=== PATIENT | male | born 1945 | race Caucasian/White ===

== ENCOUNTER 2019-05-08 12:41 | Observation (INO) | payer MEDICARE ==
[2019-05-08] MEDS ORDERED: NS 0.9% 1000 ML** 1,000 ML IV ONE (13:35)
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
[2019-05-08 14:09] LABS: ABS Lymphocytes 0.8 10^3/ul (1.0-4.8); ABS Monocytes 0.6 10^3/ul (0-0.8); ABS Neutrophils 8.7 10^3/ul (1.5-7.7); Eosinophil % 0.2 %; Hematocrit 40 % (42-52); Hemoglobin 14.4 g/dL (14.0-18.0); Lymphocyte % 8.2 %; Mean Corpuscular HGB Conc 36 g/dL (31-36); Mean Corpuscular Hemoglobin 33 pg (27-31); Mean Corpuscular Volume 92 fL (80-94); Mean Platelet Volume 8.2 fL (7.4-10.4); Platelet Count 184 10^3/uL (150-450); Red Cell Distribution Width 13 % (10-15); White Blood Count 10.1 10^3/uL (3.5-10.8)
[2019-05-08 14:16] LABS: INR 1.12 (0.82-1.09)
[2019-05-08 14:20] LABS: Albumin 3.6 g/dL (3.2-5.2); Albumin/Globulin Ratio 1.7 (1-3); BUN/Creatinine Ratio 16.8 (8-20); Calcium 8.7 mg/dL (8.6-10.3); EGFR African American 72.9 (>60); EGFR Non-African American 60.3 (>60); Globulin 2.1 g/dL (2-4); Potassium 4.3 mmol/L (3.5-5.0); Total Bilirubin 0.9 mg/dL (0.2-1.0); Total Protein 5.7 g/dL (6.4-8.9)
[2019-05-08 14:41] LABS: Activated Partial Thrombo Time 24.6 seconds (26.0-38.0)
[2019-05-08] MEDS ORDERED: Ondansetron INJ* 2 MG/ML VIAL IV PRN (16:39)
[2019-05-08] MEDS ORDERED: Acetaminophen TAB* 325 MG PO PRN (16:39)
[2019-05-08 17:16] LABS: TSH (Thyroid Stimulating Horm) 0.82 mcIU/mL (0.34-5.60)
[2019-05-08] MEDS: Enoxaparin(*) 40 MG/0.4 ML SYR SUBCUT SCH (19:21)
[2019-05-08] MEDS: NS 0.9% 1000 ML** 1,000 ML IV SCH ×2 (19:39→19:58)
[2019-05-08] MEDS: Artificial Tears* 15 ML BTL BOTH EYES SCH (19:57)
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
[2019-05-09 06:24] LABS: BUN/Creatinine Ratio 15.9 (8-20); Calcium 8.8 mg/dL (8.6-10.3); EGFR African American 82.4 (>60); EGFR Non-African American 68.1 (>60)
[2019-05-09] MEDS: Artificial Tears* 15 ML BTL BOTH EYES SCH (07:57)
[2019-05-09] MEDS ORDERED: Cholecalciferol TAB* 1000 UNITS PO SCH (09:00)
[2019-05-09] MEDS ORDERED: Losartan TAB* 25 MG PO SCH (09:00)
--- NOTE | 2019-05-09 12:46 | ECHO ---
*[facility]* [place] [address] Fax #: [phone] Transthoracic Echocardiogram Patient: John Mabry : 1945 Study Date: 05/09/2019 Age: 73 Gender: M HR: 36 bpm Height: 71 in /180.3 cm BSA: 2.06 m^2 Weight: 189.6 lb /86.2 kg BMI: 26.5 kg/m^2 *Brim Buster: * Su Sethi [facility] *Referring Physician: * Eri Moon *Reading Physician: * Arvin Ervin MD Indications: Syncope. History: Syncope. Risk factors: Hypertension. Conclusions Summary: 1. Left ventricle: Systolic function is at the lower limits of normal. The estimated ejection fraction is 50-55%. Wall motion is normal; there are no regional wall motion abnormalities. 2. Right ventricle: Systolic function is low normal. 3. Left atrium: The atrium is severely dilated. 4. Mitral valve: There is mild regurgitation. 5. Aortic valve: There is no evidence of stenosis. There is trace to mild regurgitation. 6. Ascending aorta: The ascending aorta is mild to moderately dilated. 7. Pulmonary arteries: Systolic pressure is within the normal range. 8. Study data: No prior study is available for comparison. Study data: Transthoracic echocardiogram. Procedure: Transthoracic echocardiography was performed. Image quality was fair. Complete 2D, spectral Doppler, and color flow Doppler. Location: Echo laboratory. Patient status: Inpatient. Patient room number: 441-2. No prior study is available for comparison. Rhythm: Heart block. 2nd Degree Mobitz 1. Findings Left ventricle: The cavity size is normal. Wall thickness is normal. Systolic function is at the lower limits of normal. The estimated ejection fraction is 50-55%. Wall motion is normal; there are no regional wall motion abnormalities. There is no consistent Doppler evidence of clinically significant diastolic dysfunction. Right ventricle: The cavity size is mildly dilated. The moderator band is in a normal position. Systolic function is low normal. Left atrium: The atrium is severely dilated. Right atrium: The atrium is mildly dilated. Mitral valve: The leaflets are mildly thickened. There is no evidence of stenosis. There is mild regurgitation. Aortic valve: The valve is trileaflet. The leaflets are mildly thickened. There is no evidence of stenosis. There is trace to mild regurgitation. Tricuspid valve: The leaflets are normal thickness. There is no evidence of stenosis. There is mild regurgitation. Pulmonic valve: The leaflets are normal thickness. There is no evidence of stenosis. There is trivial regurgitation. Aorta: Aortic root: The aortic root is mildly dilated. Ascending aorta: The ascending aorta is mild to moderately dilated. Aortic arch: The aortic arch is appears normal. Pericardium: There is no significant pericardial effusion. Pulmonary arteries: The main pulmonary artery is normal-sized. Systolic pressure is within the normal range. Systemic veins: Inferior vena cava: The vessel is normal in size. The respirophasic diameter changes are in the normal range (>= 50%). Measurements Left ventricle Value Ref Aortic valve Value Ref ROZ, LAX 5.5 cm 4.2 - 5.8 Micah diam, ED 2.3 cm ----- ESD, LAX 3.7 cm 2.5 - 4.0 Peak v, S 1.17 m/sec ----- FS, LAX 33 % 25 - 43 VTI, S 24.8 cm ----- PW, ED, LAX 0.9 cm 0.6 - 1.0 Mean grad, S 2.0 mm Hg ----- FS 33 % 25 - 43 Peak grad, S 5.0 mm Hg ----- PW, ED 0.9 cm 0.6 - 1.0 LVOT/AV, VTI ratio 0.93 ----- E', lat micah, TDI 13.1 cm/sec >=10.0 E/e', lat micah, 8 Mitral valve Value Ref TDI Peak E 1.07 m/sec ----- E', med micah, TDI 8.2 cm/sec >=7.0 Peak A 1.03 m/sec --- -- E/e', med micah, 13 Decel time 169 ms ----- TDI Peak grad, D 4.6 mm Hg ----- E', avg, TDI 10.7 cm/sec Peak E/A ratio 1 ----- E/e', avg, TDI 10 <=14 Pulmonic valve Value Ref LVOT Value Ref Peak v, S 0.6 m/sec ----- Peak laurent, S 0.82 m/sec Peak grad, S 1.0 mm Hg ----- VTI, S 23.0 cm Mean grad, S 2 mm Hg Tricuspid valve Value Ref TR peak v 2.2 m/sec <=2.8 Ventricular septum Value Ref Peak RV-RA grad, S 19 mm Hg ----- IVS, ED 0.8 cm 0.6 - 1.0 Aortic root Value Ref Right ventricle Value Ref Root diam (H) 4.2 cm <4.2 ROZ, LAX 3.2 cm ROZ minor ax, A4C (H) 4.6 cm 1.9 - 3.5 Ascending aorta Value Ref mid AAo AP diam, S 4.3 cm ----- Pressure, S 22 mm Hg Aortic arch Value Ref Left atrium Value Ref Arch diam 2.0 cm ----- AP dim, ES 3.60 cm 3.00 - 4.00 Decending aorta Value Ref ML dim, A4C 4.6 cm Tali peak laurent 0.75 m/sec ----- SI dim, A4C 4.7 cm Vol/bsa, ES, 1-p (H) 41 ml/m^2 12 - 37 Pulmonary artery Value Ref A4C Pressure, S 21.0 mm Hg ----- Vol/bsa, ES, A/L (H) 66 ml/m^2 16 - 34 Inferior vena cava Value Ref Right atrium Value Ref Diam 2.1 cm ----- SI dim, ES (H) 5.5 cm 3.4 - 5.3 ML dim, ES, A4C (H) 4.7 cm 2.6 - 4.4 SI dim, ES, A4C (H) 5.5 cm 3.4 - 5.3 Estimated RAP 3 mm Hg Legend: (L) and (H) aida values outside specified reference range. Prepared and electronically signed by Arvin Ervin MD 05/09/2019 12:46
[2019-05-09] MEDS: Enoxaparin(*) 40 MG/0.4 ML SYR SUBCUT SCH ×2 (15:49→15:50)
[2019-05-09 16:04] VITALS: BP 151/95
--- NOTE | 2019-05-09 19:31 | CONS ---
CC: Dr. Lian Sow * CARDIOLOGY CONSULTATION: DATE OF CONSULT: 05/09/19 INDICATION FOR CONSULTATION: Syncope. HISTORY OF PRESENT ILLNESS: The patient is a 73-year-old gentleman with a history of hypertension, macular degeneration, who had a syncopal episode yesterday in [place]. The patient states that he had his normal breakfast, but did not drink as much as he normally would in the morning. He went to congregation. It was exceedingly hot even in the congregation basement where they had their services. The patient felt nauseous and uncomfortable half way to the services. He felt like he was going to pass out. He went to sit down and felt like he missed a folding chair and collapsed on to the floor. He said witnesses reports he was unconscious for about 30 seconds. Reportedly, a registered nurse at the services was unable to feel the pulse at the time of his collapse. The patient subsequently became awake and alert and was brought to the emergency room. On arrival to the emergency room, he was in sinus bradycardia with frequent PACs. His blood pressure was stable. The patient has had no other symptoms since being in the hospital. The patient did have an episode of passing out 4 years ago. He was on a flight from [place] to [place] when he became slightly disoriented. He said he "lost track of time." He said a airline flight attendant attended to him when he arrived in [place]. He was awake and alert. He was evaluated by EMS, and EKG at that time was "unremarkable" and he followed up with his regular physician. In the intervening time between 2014 and now, he has had no symptoms. PAST MEDICAL HISTORY: Significant for hypertension, macular degeneration. PAST SURGICAL HISTORY: Melanoma removal of his left lower leg. OUTPATIENT MEDICATIONS: 1. Irbesartan 75 mg a day. 2. Multiple eye drops. ALLERGIES: No known drug allergies. FAMILY HISTORY: Mother at 94 of natural causes. Father of amyloidosis. SOCIAL HISTORY: He is retired. He has rare alcohol. Denies tobacco use. He lives with his . He tries to exercise with swimming, but his vision limits his activity. REVIEW OF SYSTEMS: Negative for fevers and chills. Negative for changes in bowel or bladder habits. Negative for change in weight. Other 12-point review is unremarkable. PHYSICAL EXAM: Height is 5 feet and 11 inches, weight is 187 pounds. Temperature 97.9, heart rate is 67, blood pressure 127/75, respiratory rate is 20, oxygen saturation 98% on room air. Sclerae anicteric. Oropharynx is pink without erythema. Carotids are 2+ without bruits. JVD is normal. Thyroid is normal. Cardiac Exam: S1, S2 without any murmurs, rubs, or gallops. PMI is normal. Lungs are clear to auscultation. There is no dullness to percussion. Abdomen: Soft, nontender, nondistended with normoactive bowel sounds. Extremities: Show no edema. He has 2+ pulses throughout. The patient is awake , alert, and oriented. He moves all 4 extremities equally. DIAGNOSTIC STUDIES/LAB DATA: CBC within normal limits. Chemistries within normal limits. Troponin is negative x3. TSH is 0.8. EKG shows sinus bradycardia at 50 beats per minute with occasional PACs. Echocardiogram: His echocardiogram shows normal LV size and systolic function. No significant valvular abnormalities. He does have a dilated left atrium and a mildly dilated ascending aorta. IMPRESSION: This is a 73-year-old gentleman with an episode of syncope as described above. Again, he had an episode of syncope 4 years ago as well. On his monitor technician here in the hospital, he does have occasional bradycardias down to the 40s, which are asymptomatic. No other significant arrhythmias. RECOMMENDATIONS: For now, my recommendation is that we could do 1 of 3 things. One since his 2 episodes were 4 years apart that we do not do anything and see when his next episode is. Two, is to place an event monitor subcutaneously for continuous monitor his heart rhythm to determine if he has any significant arrhythmias with his potential next event. Last event is for a permanent pacemaker implantation given his episode of syncope and bradycardia. It is my recommendation that the patient undergo an event monitor implantation, so we have continuous cardiac monitoring for future events. Again, the patient has left atrial enlargement, which could put him at risk for atrial arrhythmias. At this point, the patient has declined any intervention. I do not think any medication changes are necessary. I do not think any other cardiac testing is necessary. The patient will follow up with is primary care physician. The patient said he will call my office if he wants to proceed with an event monitor implantation. This case was discussed with Adina Le NP. [id number]/CPS #: [id number] PATRICIA
--- NOTE | 2019-05-10 02:32 | DS ---
CC: Dr. Lian Sow; Dr. Arvin Ervin.* DISCHARGE SUMMARY: DATE OF ADMISSION: 05/08/19 DATE OF DISCHARGE: 05/09/19 PRIMARY CARE PROVIDER: Dr. Lian Sow. ATTENDING PHYSICIAN: Dr. Claudia Callahan * (dictated by Adina Le NP). PRIMARY DIAGNOSES: 1. Syncope. 2. Bradycardia. SECONDARY DIAGNOSES: 1. Hypertension. 2. Macular degeneration. STUDIES WHILE IN THE HOSPITAL: 1. EKG on 05/08/19 shows normal sinus rhythm with a supraventricular bigeminy at a rate of 65, QTc 486. No ischemic changes. 2. EKG on 05/08/19 shows normal sinus rhythm with a supraventricular bigeminy at a rate of 72, QTc 504, no ischemic changes. 3. Chest x-ray on 05/08/19 reads as: No active cardiopulmonary disease. 4. Transthoracic echocardiogram on 05/09/19 reads as: The left ventricular systolic function is at the lower limits of normal. The estimated ejection fraction is 50% to 55%. Wall motion is normal and there are no regional wall motion abnormalities. Right ventricular systolic function is at low normal. The left atrium is severely dilated. There is mild mitral regurgitation. There is no evidence of aortic stenosis. There is trace to mild aortic regurgitation. The ascending aorta is mild to moderately dilated. Systolic pressure in the pulmonary arteries is within normal range. No prior study available for comparison. HISTORY OF PRESENT ILLNESS AND HOSPITAL COURSE: Mr. Mabry is a 73-year-old male with past medical history of hypertension, macular degeneration, retinal dystrophy, and 1 syncopal event approximately 3 years ago; who presented to the emergency room on 05/08/19 after a syncopal episode. Please see history and physical by JAYLEN Hernandez, for a complete summary of the events leading up to this hospitalization. In short, the patient went for a walk in the morning and was generally feeling in the normal state of health. He does note that after breakfast he started feeling very warm and uncomfortable. At that point he stood for approximately 5 minutes when he started to feel faint and nauseous. He did reportedly synopsized, although this was not directly witnessed. There was a loss of consciousness. While on the ground a nurse in the building could not find a pulse. EMS arrived and the patient was noted to be hypotensive and bradycardic. He was given atropine and brought to the emergency room. In the emergency room, he had imaging as noted above. There was no notable bradycardia, though he was noted to have supraventricular bigeminy. Lab work was essentially unremarkable, though due to the concern for syncope he was admitted by the hospitalist service. The patient had an uneventful night, he was monitored on telemetry. He was noted to have an irregular rhythm, many times being in supraventricular bigeminy and heart rate did drop as low as 42 beats per minute. His heart rate was noted to drop to 42 while he was awake today. He did have orthostatic vital signs which were negative. He had an echo which was essentially unremarkable, though due to this persistent bradycardia and the patient's now second syncopal event within the last 3 years, I did consult Cardiology. Dr. Ervin saw the patient and ultimately recommended an event recorder. There is a significant concern at this point for a cardiogenic cause of his syncope as he was noted to have bradycardia and additionally a nurse who was present when he synopsized was not able to find a pulse. Dr. Ervin did discuss these recommendations at length with the patient as did I after Dr. Ervin had seen him. The patient at this point does not wish to pursue an event recorder and would like to go home. He will consider placement of an event monitor in the future, but does not wish to pursue this at this time. He does note that he has been under significant stress recently as he is losing his eyesight. PHYSICAL EXAMINATION: He has no focal neurological deficits except for his decrease in visual acuity which is at his baseline. His heart has been in a regularly irregular rhythm without murmurs, rubs, or gallops. Lungs are clear to auscultation without rhonchi, wheezes, or rubs. There is no edema. Physical assessment is otherwise benign. The patient was able to stand at the bedside with me for approximately 5 minutes without feeling any dizziness or near syncope. Mr. Mabry is stable for discharge today. Vital signs are as follows: Temp 98.1, heart rate 52, respiratory rate 16, oxygen saturation 99% on room air, and blood pressure 151/95. DISCHARGE MEDICATIONS: Continued medications: 1. Cholecalciferol 1000 units p.o. daily. 2. Irbesartan 75 mg p.o. daily. 3. Systane ultra 0.4-0.3% one drop both eyes b.i.d. DISCHARGE PLAN: Mr. Mabry will be discharged home. ACTIVITY: Will be as tolerated. The patient has been advised to use caution when he is feeling dizzy or hot and to remain seated until these symptoms dissipate. DIET: Will be regular as tolerated. He can resume his usual medications and I have not made any changes. Again at this point it has been recommended that the patient have an event monitor which he does not wish to pursue at this time. Dr. Ervin did advise that if the patient does wish to pursue an event monitor he can call his office in the next 30 days to schedule the procedure as an outpatient and if he waits longer than 30 days he will need to have an office visit before scheduling the procedure. He should additionally follow up with his primary care provider in 4 to 7 days. He has been advised to return to the emergency room or the nearest hospital for any worsening symptoms, shortness of breath, lightheadedness, dizziness, chest discomfort, high fevers, chills, night sweats, loss of consciousness; or any other worrisome signs or symptoms. DISCHARGE CONDITION: Stable. DISCHARGE DISPOSITION: Home. This is a summarized report of a complex medical history and hospital stay. For further details please see the entire medical record. TIME SPENT: Approximately 60 minutes was spent on this discharge. ADINA LE, JAM [id number]/VINCENT #: [id number] PATRICIA
== END 2019-05-09 16:20 | disposition home or self-care (01) ==
LOC: ED 12:41 → MEDTELE 16:39
PROVIDERS: ADMIT Internal Medicine; ATTEND Internal Medicine
DX: R55 Syncope and collapse (principal); R00.1 Bradycardia, unspecified; I10 Essential (primary) hypertension; H35.30 Unspecified macular degeneration; H35.50 Unspecified hereditary retinal dystrophy; I12.9 Hypertensive chronic kidney disease with stage 1 through stage 4 chronic kidney disease, or unspecified chronic kidney disease; N18.3 Chronic kidney disease, stage 3 (moderate); Z85.820 Personal history of malignant melanoma of skin
CPT/HCPCS: 36415; 71045; 80048; 80053; 83605; 83735; 84443; 84484; 85025; 85610; 85730; 93005; 93306; 96360; 96361; 99284; A9270-GY; G0378; J1650